=== PATIENT | male | born 1990 | race Caucasian/White ===

== ENCOUNTER 2020-08-31 17:05 | Emergency (ER) | payer OTHER ==
[~2020-08-31 17:05] MED LIST: DECADRON6 MG PO; LODINE CAP 300300 MG PO; VENTOLIN HFA 66.7 GM INH
== END 2020-08-31 18:40 | disposition home or self-care (01) ==
LOC: ER1 17:05
DX: S61.512A Laceration without foreign body of left wrist, initial encounter (principal); S51.812A Laceration without foreign body of left forearm, initial encounter; Z23 Encounter for immunization; W25.XXXA Contact with sharp glass, initial encounter; Y92.009 Unspecified place in unspecified non-institutional (private) residence as the place of occurrence of the external cause
CPT/HCPCS: 12002; 73110; 90471; 90715; 99283

== ENCOUNTER 2021-07-05 17:42 | Emergency (ER) | payer OTHER ==
[2021-07-05] MEDS ORDERED: NAPROSYN500 MG PO (17:59)
[2021-07-05] MEDS ORDERED: CLEOCIN HCL300 MG PO (18:02)
== END 2021-07-05 18:32 | disposition home or self-care (01) ==
LOC: ER1 17:42
DX: K08.89 Other specified disorders of teeth and supporting structures (principal)
CPT/HCPCS: 96372; 99282; J1885